=== PATIENT | female | born 1965 | race Caucasian/White ===

== ENCOUNTER → 2023-11-12 14:26 | Outpatient (REF) | payer OTHER, SELFPAY | LOC: WDC 14:26 | PROVIDERS: ATTENDING PHYSICIAN Obstetrics & Gynecology; FAMILY PHYSICIAN Family Medicine | DX: Z12.31 Encounter for screening mammogram for malignant neoplasm of breast (principal) | CPT/HCPCS: 77063; 77067 ==

== ENCOUNTER → 2023-11-18 08:59 | Outpatient (REF) | payer OTHER, SELFPAY | LOC: WDC 08:59 | PROVIDERS: ATTENDING PHYSICIAN Obstetrics & Gynecology; FAMILY PHYSICIAN Family Medicine | DX: R92.8 Other abnormal and inconclusive findings on diagnostic imaging of breast (principal) | CPT/HCPCS: 76642 ==

== ENCOUNTER → 2024-12-07 15:09 | Outpatient (REF) | payer OTHER, SELFPAY | LOC: WDC 15:09 | PROVIDERS: ATTENDING PHYSICIAN Obstetrics & Gynecology | DX: Z12.31 Encounter for screening mammogram for malignant neoplasm of breast (principal) | CPT/HCPCS: 77063; 77067 ==

== ENCOUNTER 2024-12-11 12:31 | Emergency (ER) | payer OTHER, SELFPAY ==
[2024-12-11 12:33] VITALS: BP 168/108
[2024-12-11 12:45] VITALS: BP 127/93
[2024-12-11 13:00] VITALS: BP 120/83
[2024-12-11] MEDS: VALIUM INJECTION 2 MG IV (13:27)
[2024-12-11] MEDS: TYLENOL 1000 MG PO (13:27)
[2024-12-11] MEDS: NSS 1000 IV (13:28)
[2024-12-11 13:43] LABS: Hematocrit 42.3 % (37.0-47.0); Hemoglobin 14.9 g/dL (12.0-16.0); Mean Corp Hgb Conc. 35.2 g/dL (33.0-37.0); Mean Corpuscular Volume 86.7 fL (81.0-99.0); Nucleated Red Blood Cells % 0 %; Platelet Count 192 10^3/uL (130-400); Red Cell Dist. Width 12.8 % (11.5-14.5)
[2024-12-11 13:53] LABS: ALT (SGPT) 22 U/L (0-35); AST (SGOT) 19 U/L (14-36); Albumin 4.8 g/dl (3.5-5.0); Alkaline Phosphatase 78 U/L (38-126); Blood Urea Nitrogen 18 mg/dl (7-17); Calcium 10.0 mg/dl (8.4-10.2); Carbon Dioxide 25 mmol/L (22-30); Chloride 107 mmol/L (98-107); Glucose 107 mg/dl (70-99); Potassium 4.0 mmol/L (3.5-5.1); Sodium 138 mmol/L (135-145); Total Protein 7.2 g/dl (6.3-8.2); eGFR > 60.00
--- NOTE | 2024-12-11 15:08 | ED.GENMED ---
History of Present Illness
General
Chief Complaint: Headache
Time Seen by Provider: 12/11/24 13:06
History of Present Illness
History of Present Illness:
59-year-old female without significant past medical history presenting to the emergency department for headache. Patient reports around noon today she was crying. She notes that she has been dealing with a lot of stress, and prior to arrival was
very upset. She suddenly had severe headache at the back of her head with radiation to the front. Notes prior history of headaches in the past, however this felt worse. Denies associated weakness or numbness or tingling. She took Motrin prior to
arrival and upon arrival to the hospital notes that her pain has improved. Denies visual changes. Denies fever. Denies chest pain or difficulty breathing. She is not on any blood thinners. Denies additional medical complaints
Past History
Social History
Tobacco: Non-smoker
Phy Exam
Physical Exam
Physical Exam:
General: Well-appearing, no clinical signs of dehydration, nontoxic and in no acute distress
HEENT: protecting airway, pupils equal and reactive
Neck: appears supple
CV: Normal heart rate, regular rhythm
Resp: No accessory muscle use, no increased work of breathing, lungs clear to auscultation bilaterally
Abd: No distention
Extremities: No deformities, no swelling
Neuro: alert, no focal neurologic deficit
: deferred
Rectal: deferred
Psych: Normal affect
Skin: Intact
Course
Orders/Labs/Results
Orders:
Orders
12/11/24 13:18
CT Head & Neck Angio W/wo IV Urgent
Comment:
Reason For Exam: severe sudden onset headache
0.9% Sodium Chloride 1000 ml [Nss] 1,000 ml IV BOLUS
Acetaminophen [Tylenol] 1,000 mg PO NOW STA
diazePAM [Valium Injection] 2 mg IV NOW STA
12/11/24 13:26
Complete Blood Count/With Diff Urgent
Comprehensive Metabolic Panel Urgent
Abnormal Lab Results
12/11/24
13:26
Absolute Lymphs (auto) 1.0 L 10^3/uL
(1.2-3.4)
Neutrophils % 77.2 H %
(42.2-75.2)
Lymphocytes % 13.6 L %
(20.5-51.1)
BUN 18 H mg/dl
(7-17)
Glucose 107 H mg/dl
(70-99)
12/11/24 13:26
12/11/24 13:26
Vital Signs
Initial and Last Documented VS:
Initial Vital Signs
Temp Pulse Resp BP Pulse Ox
98.5 F 61 18 168/108 98
12/11/24 12:33 12/11/24 12:33 12/11/24 12:33 12/11/24 12:33 12/11/24 12:33
Last Documented Vital Signs
Temp Pulse Resp BP Pulse Ox
98.5 F 61 18 120/83 100
12/11/24 12:33 12/11/24 12:33 12/11/24 12:33 12/11/24 13:00 12/11/24 15:11
MDM/Problems Addressed
MDM/Problems Addressed:
59-year-old female without significant past medical history presenting for severe headache. Vital signs on arrival are significant for high blood pressure, however resolved without intervention.
On exam, patient is tearful, upset. Notes that her headache has also moved since arrival to the hospital. Ultimately case possible panic attack and emotional response to patient's headache, however patient reports that her headache was more severe
than she has ever had in the past. Given acute onset of symptoms, feel patient warrants CT imaging to ensure no acute intracranial abnormality. Will start patient on Tylenol for pain, as well as diazepam for suspected anxiety component.
15:30 - CT head without acute intracranial abnormality. Patient made aware of incidental finding of benign meningioma. No sign of subarachnoid hemorrhage. Given onset of symptoms less than 6 hours prior to arrival with negative CT and CT angio,
without present concern for subarachnoid hemorrhage. Patient continues to report that her headache has improved. Feel stable for discharge with outpatient supportive therapy and outpatient primary care follow-up. Return precautions discussed and
patient verbalized understanding.
*Pulse Oximetry
SaO2: 100
Oxygen Mode of Delivery: Room air
Patient hypoxic: no
*Critical Care Note
Total Time (30-74mins, 75-104mins- exclusive of procedures): Not Applicable
ED Attending Note
-
Portions of this chart may have been created with voice recognition software.� Occasional wrong word or��sound alike� substitutions may have occurred due to the inherent limitations of voice recognition software.
Discharge Plan
Departure
Patient Disposition: Home (Routine Discharge)
Date of Disposition: 12/11/24
Time of Disposition: 15:39
Patient with high blood pressure during this ER visit?: Yes
Condition: Good
Discharge Problem:
Headache
Instructions: Headache, Adult (DC)
Prescriptions:
No Action
amoxicillin-pot clavulanate 1 TABLET tablet
1 tab PO Q12 Qty: 20 0RF
Referrals:
Mallorie Sevilla MD [Family Provider, [facility]]
Activity Restrictions/Additional Instructions:
You were seen in the emergency department for headache
You were found to have reassuring laboratory analysis and CT imaging of your brain.
Please follow-up closely with your primary care physician.
Return to the emergency department for any worsening of your symptoms, or any development of chest pain, difficulty breathing, abdominal pain with persistent vomiting and inability to tolerate food or liquid by mouth (concern for dehydration),
weakness, headache or confusion, fever greater than 100.4, or any additional symptoms that are concerning to you.
Thank you for choosing [facility].
Interventions
Interventions:
*Risk Screen - Suicide Last Done: 12/11/24 12:33
*General Assessment Last Done: 12/11/24 12:33
*Neglect/Abuse Screening Last Done: 12/11/24 12:33
*ED- Fall Risk Assessment Last Done: 12/11/24 12:33
*ED COVID-19 Vaccine History Last Done: 12/11/24 12:33
*Nursing Disposition Last Done: 12/11/24 16:13
ED- Neurological Assessment Last Done: 12/11/24 12:44
Discharge Date and Time
Discharge Date/Time: 12/11/24 16:14
Print Language: [place]
== END 2024-12-11 16:14 | disposition home or self-care (01) ==
LOC: EMR 12:31
PROVIDERS: EMERGENCY PHYSICIAN Student in an Organized Health Care Education/Training Program; FAMILY PHYSICIAN Family Medicine
DX: R51.9 Headache, unspecified (principal); D32.9 Benign neoplasm of meninges, unspecified
CPT/HCPCS: 96374; 96361; 99284; 70496; 70498; 80053; 85025; Q9967

== ENCOUNTER → 2025-03-22 15:41 | Outpatient (REF) | payer OTHER, SELFPAY | LOC: HWRCS 15:41 | PROVIDERS: ATTENDING PHYSICIAN Nurse Practitioner; FAMILY PHYSICIAN Family Medicine | DX: R94.31 Abnormal electrocardiogram [ECG] [EKG] (principal) | CPT/HCPCS: 93306 ==